=== PATIENT | female | born 1995 | race African-American/Black ===

== ENCOUNTER 2021-11-12 10:56 | Emergency (ER) | payer SELFPAY ==
--- NOTE | ~2021-11-12 | US_ITS ---
EXAMINATION: US pelvic complete w TV EXAM DATE: 11/12/2021 15:06 INDICATION: Pelvic pain. Vaginal bleeding. TECHNIQUE: Pelvic transabdominal and transvaginal sonogram was performed. There are multiple graysca le and Doppler images available for interpretation. There is no prior study for comparison. FINDINGS: Uterus measures 7.7 x 3.4 x 4.1 cm, is anteverted and morphologically normal. Endometrial stripe measures 4 mm, within normal limits. There is no free pelvic fluid. Right adnexa: The ovary measures 4.1 x 1.8 x 2.3 cm and is morphologically normal. Ovarian vascular f low confirmed. Left adnexa: The ovary measures 3.0 x 1.7 x 2.6 cm and is morphologically normal. Ovarian vascular fl ow confirmed. IMPRESSION: 1. Unremarkable pelvic ultrasound exam. Reviewed, dictated and finalized at location A. [employer]
[2021-11-12 11:19] VITALS: BP 128/88; PULSE 88; RESP 14; TEMP 36.3; O2SAT 100
--- NOTE | 2021-11-12 14:19 | ED.GENADULT ---
HPI - General Adult General Chief complaint: Vaginal Bleeding Stated complaint: vaginal bleeding for 5 months Time Seen by Provider: 11/12/21 14:10 Source: RN notes reviewed History of Present Illness HPI narrative: Patient presents to emergency department from home for vaginal bleeding. Patient states she has been having vaginal bleeding for the past 5 months states she been going through approximately 10 pads a day but increased today. Is associated with pain in the lower abdomen described as cramping that radiates around to the back. She denies any fevers or chills chest pain shortness of breath nausea vomiting diarrhea or any other symptoms. States she is get a schedule appoint with [facility] on November 29 but came today because bleeding was worsening Related Data Allergies Allergy/AdvReac Type Severity Reaction Status Date / Time No Known Allergies Allergy Verified 11/12/21 11:20 Review of Systems Review of Systems: Gen.: Denies fevers or chills ENT: Denies congestion Respiratory: Denies shortness of breath or cough CV: Denies chest pain or palpitations GI: Reports lower abdominal pain denies nausea vomiting diarrhea see HPI Musculoskeletal: Denies back pain or muscle pain Neuro: Denies numbness, tingling, weakness or focal weakness Skin: Denies rash Except as documented, all other systems reviewed and negative [facility] Past Medical History Medical History (Updated 11/12/21 @ 16:43 by Luis Alberto Kasper DO) Patient denies significant medical history Social History Social History (Updated 11/12/21 @ 14:20 by Luis Alberto Kasper DO) Smoking status: Never smoker Exam Narrative: APPEARANCE: No acute distress, nontoxic, resting in bed HEENT: Normocephalic, atraumatic, OMM RESPIRATORY: No respiratory distress, clear to auscultation bilaterally with no rhonchi wheezing or rales CARDIOVASCULAR: RRR s murmur ABDOMINAL: Soft nondistended tender palpation and right lower quadrant left lower quadrant no tenderness right upper quadrant left lower quadrant rebound : Normal external exam small amount of dark red blood in vaginal canal cervix is closed MUSCULOSKELETAl: Moves all extremities. No clubbing, cyanosis or edema. NEURO: Awake and alert. Following commands, speech normal, no focal deficits SKIN:: Warm, dry. Normal Color PSYCHIATRIC: Normal affect/mood Course Course Emergency Course: Discussed with Dr. Velasquez presentation work-up agrees with plan for discharge to follow-up as an outpatient Discussed with patient results of workup and diagnosis. Discussed need for follow-up with primary care, proper use of medication, and reasons to return to the emergency department. Patient understands and agrees to current treatment plan Vital Signs Vital signs: Vital Signs Temperature 97.4 F L 11/12/21 11:19 Pulse Rate 88 11/12/21 11:19 Respiratory Rate 14 11/12/21 11:19 Blood Pressure 128/88 11/12/21 11:19 Pulse Oximetry 100 11/12/21 11:19 Temperature 97.4 F L 11/12/21 11:19 Pulse Rate 88 11/12/21 11:19 Respiratory Rate 14 11/12/21 11:19 Blood Pressure 128/88 11/12/21 11:19 Pulse Oximetry 100 11/12/21 11:19 Medical Decision Making Vital Signs Vital Signs: Vital Signs Temperature 97.4 F L 11/12/21 11:19 Pulse Rate 88 11/12/21 11:19 Respiratory Rate 14 11/12/21 11:19 Blood Pressure 128/88 11/12/21 11:19 Pulse Oximetry 100 11/12/21 11:19 Temperature 97.4 F L 11/12/21 11:19 Pulse Rate 88 11/12/21 11:19 Respiratory Rate 14 11/12/21 11:19 Blood Pressure 128/88 11/12/21 11:19 Pulse Oximetry 100 11/12/21 11:19 Lab Data Result diagrams: 11/12/21 15:13 11/12/21 15:13 Labs: Lab Results 11/12/21 11/12/21 11/12/21 Range/Units 15:13 15:13 16:02 WBC 4.5 (4.5-10.0) K/mm3 RBC 5.05 (4.2-5.4) M/mm3 Hgb 14.8 (12.0-15.0) g/dL Hct 44.8 (37.0-47.0) % MCV 88.7 (80-100) fl MCH 29.3 (26-34) pg MC
[2021-11-12] MEDS: KETOROLAC 30 MG/ML VIAL (*BKC) IV PUSH (15:04)
[2021-11-12] MEDS: SODIUM CHLORIDE 0.9% IV 1,000 ML 999 ML IV CONT (15:04)
[2021-11-12 15:24] LABS: Basophils Percent Auto 0.4 % (0.2-1.2); Eosinophils Percent Auto 0.2 % (0-4.4); Hematocrit 44.8 % (37.0-47.0); Hemoglobin 14.8 g/dL (12.0-15.0); Immature Granulocyte Absolute 0.01 K/mm3 (0.00-0.031); Immature Granulocyte Percent A 0.2 % (0-0.5); Lymphocytes Absolute Auto 2.33 K/mm3 (0.9-3.2); Lymphocytes Percent Auto 51.5 % (18.3-44.2); Mean Corpuscular Hemoglobin 29.3 pg (26-34); Mean Corpuscular Volume 88.7 fl (80-100); Mean Platelet Volume 10.2 fl (7.4-10.4); Monocytes Absolute Auto 0.8 K/mm3 (0.1-0.6); Monocytes Percent Auto 17.9 % (2.6-8.5); Neutrophils Absolute Auto 1.3 K/mm3 (1.3-6.7); Neutrophils Percent Auto 29.8 % (45.5-73.1); Platelet Count Result 188 k/mm3 (150-375); Red Blood Count 5.05 M/mm3 (4.2-5.4); Red Cell Distribution Width 13.6 % (11.5-14.5); White Blood Count 4.5 K/mm3 (4.5-10.0)
[2021-11-12 15:34] LABS: Alanine Aminotransferase 17 U/L (4-35); Alkaline Phosphatase 75 U/L (38-126); Anion Gap 15 mmol/L (8-16); Aspartate Amino Transferase 30 U/L (14-36); Bilirubin,Total 0.5 mg/dL (0.2-1.3); Blood Urea Nitrogen 14 mg/dL (7-17); Calcium 9.6 mg/dL (8.4-10.2); Carbon Dioxide 22 mmol/L (22-30); Chloride 98 mmol/L (98-107); Estimated CRCL calculation 70 ml/min; Estimated Glomerular Filt Rate > 60; Glucose 79 mg/dL (65-110); Potassium 4.1 mmol/L (3.4-5.0); Sodium 135 mmol/L (137-145)
[2021-11-12 16:37] LABS: Add Urine Microscopic? YES; Appearance Urine Cloudy (Clear); Bacteria Urine Trace /hpf; Bilirubin Urine Negative (Negative); Blood Urine Negative (Negative); Color Urine Yellow (Yellow); Glucose Urine UA Negative (Negative); Ketones Urine 1+ mg/dL (Negative); Leukocyte Esterase Ur Negative LEU/UL (Negative); Mucus Urine Few /lpf; Nitrate Urine Negative (Negative); Protein Urine Negative (Negative); Squamous Epithelial Cell Urine Few /hpf (Few); Urobilinogen Urine Negative mg/dL (<2.0); WBC Urine 0-3 /hpf
[2021-11-12 16:38] LABS: Specific Grav Ur 1.031 (1.001-1.035)
== END 2021-11-12 17:04 | disposition home or self-care (01) ==
PROVIDERS: Emergency Provider Emergency Medicine
DX: N93.8 Other specified abnormal uterine and vaginal bleeding (principal)
CPT/HCPCS: 36415; 76830; 76856; 80053; 81001; 81025; 85025; 96361; 96374; 99284; J1885; J7030

== ENCOUNTER 2022-11-21 11:40 | Outpatient (CLI) | payer SELFPAY ==
--- NOTE | 2022-11-21 | ECG_ITS ---
Measurements Intervals [place] Rate: 75 P: 73 OK: 130 QRS: 50 QRSD: 76 T: 22 QT: 366 QTc: 409 Interpretive Statements SINUS RHYTHM POSSIBLE LEFT ATRIAL ENLARGEMENT BORDERLINE ST-T WAVE ABNORMALITY- INFERIOR LEADS BORDERLINE ECG NO PREVIOUS ECG AVAILABLE FOR COMPARISON Electronically Signed On 11-21-2022 12:47:35 [employer] APPRENTICE by Antony Tobias D.O.
== END 2022-11-21 11:41 | disposition home or self-care (01) ==
PROVIDERS: PCP Family Medicine; Visit Provider Family Medicine
DX: R00.2 Palpitations (principal); R42 Dizziness and giddiness; R94.31 Abnormal electrocardiogram [ECG] [EKG]
CPT/HCPCS: 93005

== ENCOUNTER 2024-01-24 09:29 | Emergency (ER) | payer OTHER, SELFPAY ==
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
[2024-01-24 09:38] VITALS: BP 120/80; PULSE 65; RESP 16; TEMP 37.2; O2SAT 100
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
[2024-01-24] MEDS: ACETAMINOPHEN 500 MG TABLET 1000 MG PO (10:29)
[2024-01-24 10:30] VITALS: BP 118/74; PULSE 64; RESP 16; TEMP 36.7; O2SAT 100
[2024-01-24 11:15] VITALS: BP 97/67; PULSE 68; RESP 16; O2SAT 100
[2024-01-24 12:18] VITALS: BP 98/64; PULSE 65; RESP 20; O2SAT 100
== END 2024-01-24 12:19 | disposition home or self-care (01) ==
PROVIDERS: Emergency Provider Physician Assistant
DX: S09.90XA Unspecified injury of head, initial encounter (principal); S16.1XXA Strain of muscle, fascia and tendon at neck level, initial encounter; V49.40XA Driver injured in collision with unspecified motor vehicles in traffic accident, initial encounter
CPT/HCPCS: 70450; 72125; 72128; 72131; 81025; 99284; A9270

== ENCOUNTER 2025-05-11 14:35 | Emergency (ER) | payer OTHER, SELFPAY | END 2025-05-11 17:07 | disposition left against medical advice (07) | DX: Z53.21 Procedure and treatment not carried out due to patient leaving prior to being seen by health care provider (principal) | CPT/HCPCS: 99199 ==